=== PATIENT | male | born 1990 | race Caucasian/White ===

== ENCOUNTER 2017-02-15 07:38 | Emergency (ER) | payer SELFPAY ==
--- NOTE | ~2017-02-15 | ER ---
PATIENT'S NAME: MARY MERCADO [facility] AGE: 26 Y [address] ROOM: [place] [address] LOCATION: [facility] ADMIT DATE: 02/15/2017 ER/Outpatient Report DISCHARGE DATE: 02/15/2017 FAMILY PHYSICIAN: PHYSICIAN, NO ATTENDING PHYSICIAN: Matthew Murray Admission date and time documented in the medical record. I saw the patient at 0750 hours. CHIEF COMPLAINT: Shortness of breath, cough, wheezing, and fatigue. HISTORY OF PRESENT ILLNESS: The patient is a 26-year-old male who since yesterday has had increasing shortness of breath, chest tightness, wheezing. He has used a friend's inhaler every 2 hours. He has a dry cough, occasionally coughs up some white- grayish material. He had generalized fatigue. Denies any fever, chills, or sweats. No recent colds. No headache; eyes, ears, nose, throat, neck, or spine pain. A little lightheaded and dizzy. He thinks he has had some hyperventilation problems. No syncope or near syncope. No fall or trauma. Really, no chest pain, just the tightness. He is short of breath and wheezy. He is tachypneic. No abdominal pain, nausea, vomiting, diarrhea, or back pain. No joint or muscle swelling, redness, or pain. No skin eruptions or rash. No neuro changes, psych issues, or endocrine problems. HOME MEDICATIONS: None. ALLERGIES: NONE. SOCIAL HISTORY: The patient smokes a pack of cigarettes a day. Nondrinker. SIGNIFICANT PAST MEDICAL HISTORY: Negative except for tobacco abuse. He has had several ED visits for some respiratory problems, questionable asthma or reactive airway disease versus bronchitis. OPERATIONS: None. REVIEW OF SYSTEMS: All systems reviewed by me are negative with the exception of those discussed in the history of present illness. PATIENT'S NAME: MARY MERCADO [facility] AGE: 26 Y [address] ROOM: [place] [address] LOCATION: [facility] ADMIT DATE: 02/15/2017 ER/Outpatient Report DISCHARGE DATE: 02/15/2017 FAMILY PHYSICIAN: PHYSICIAN, NO ATTENDING PHYSICIAN: Matthew Murray PHYSICAL EXAMINATION: VITAL SIGNS: Temperature 96.3 tympanic, pulse 122 and regular, respirations 28, blood pressure 136/67, and O2 saturation on room air is 88%. HEENT: Head normocephalic. Eyes: Extraocular muscles intact. PERRL. Ears, clear TMs bilaterally. Nose clear. Throat clear. Mucous membranes moist. NECK: No nuchal rigidity. No thyromegaly or cervical adenopathy. No tenderness to palpation. SPINE: Nontender. No deformity. LUNGS: Decreased breath sounds diffusely with expiratory wheezing and rhonchi. Coarse cough. HEART: Tachy, regular. The patient is tachypneic. Pulses palpable. ABDOMEN: Flat, soft, nondistended, nontender. Good bowel tones. No organomegaly or abnormal masses palpable. EXTREMITIES: No peripheral edema, cyanosis, or deformity. NEUROVASCULAR: Intact. SKIN: Clear. IMAGING DATA: Chest x-ray showed no acute infiltrate. We will review x-ray with the radiologist. LABORATORY DATA: [place] [address], 86 segs, 5 lymphs, 5 monos, 4 eos; hemoglobin 17.1 with hematocrit 48.8; and platelet count 218,000. Sed rate was 2. CMS was normal. CRP was 0.83. EMERGENCY DEPARTMENT COURSE: Did start on IV saline lock. Gave the patient Solu-Medrol 250 mg IV in the emergency room, epinephrine 0.3 IM in the emergency room, and Rocephin 1 g IV in the emergency room. Gave him 2 DuoNeb and 1 albuterol nebulized respiratory treatments about 30 minutes apart here in the emergency department. He had improvement with respiratory nebulizer treatments. IMPRESSION: 1. Chest tightness with expiratory wheezes and rhonchi, etiology uncertain. He has accompanied hypoxia and leukocytosis without a left shift. This may be bronchitis with some reactive airway disease. He may have some asthma. 2. Tobacco abuse. PLAN: The patient dismissed home. Observation. Activity as tolerated. Stop smoking. Good fluid intake. Balanced diet. Albuterol oral inhaler with AeroChamber 2 puffs 30 seconds apart 4 times a day and p.r.n. Prednisone 20 PATIENT'S NAME: MARY MERCADO [facility] AGE: 26 Y [address] ROOM: [place] [address] LOCATION: ED ADMIT DATE: 02/15/2017 ER/Outpatient Report DISCHARGE DATE: 02/15/2017 FAMILY PHYSICIAN: PHYSICIAN, GEGE ATTENDING PHYSICIAN: Matthew Murray mg b.i.d. #14, Bactrim double strength b.i.d. #14. Follow up with personal physician as needed. Discussion ensued with the patient concerning my findings and recommendations, he understands. MD NONA DAWSON/abbyl /[id number] d: 02/15/17 1754 t: 02/16/17 0633, OUTPATIENT REPORT
[2017-02-15 08:13] LABS: BASOPHIL # 0.1 K/uL (0.0-0.2); BASOPHIL % 0.3 %; EOSINOPHIL # 0.6 K/uL (0.0-0.5); EOSINOPHIL % 3.5 %; HEMATOCRIT 48.8 % (37.0-53.0); HEMOGLOBIN 17.1 g/dL (12.0-17.0); IMMATURE GRANULOCYTE # 0.1 K/uL (0.0-0.3); IMMATURE GRANULOCYTE % 0.3 %; LYMPHOCYTE # 0.9 K/uL (0.8-4.0); LYMPHOCYTE % 5.2 %; MCH 30.8 pg (27.0-34.0); MCV 87.9 fl (83.0-98.0); MONOCYTE # 0.8 K/uL (0.0-1.0); MONOCYTE % 4.9 %; MPV 9.4 fl (9.4-12.4); NEUTROPHIL # (ANC) 14.3 K/uL (1.4-9.0); NEUTROPHIL % 85.8 %; NRBC % 0 /100WBC (0-0.00); PLATELET COUNT 218 K/uL (150-450); RBC 5.55 M/uL (4.00-6.00); RDW-CV 12.1 % (11.9-14.6)
[2017-02-15 08:14] LABS: WBC 16.7 K/uL (4.0-11.0)
[2017-02-15 08:30] LABS: ALBUMIN 4.5 gm/dL (3.5-5.0); ALK PHOS 90 IU/L (33-138); ALT 40 IU/L (12-78); ANION GAP 12.9 (10.0-19.0); AST 30 IU/L (10-40); BLOOD UREA NITROGEN 17 mg/dL (6-24); CHLORIDE 107 mMol/L (96-110); CO2 24 mMol/L (22-32); CREATININE 0.9 mg/dL (0.6-1.3); ESTIMATED GFR (MDRD EQUATION) > 60; POTASSIUM 3.9 mMol/L (3.7-5.1); SODIUM 140 mMol/L (135-145); TOTAL BILIRUBIN 1.2 mg/dL (0.0-1.5); TOTAL PROTEIN 7.3 g/dL (6.0-8.4)
== END 2017-02-15 10:06 | disposition disaster alternative care site (69) ==
LOC: GMED 07:38
PROVIDERS: Emergency Medicine
DX: R07.89 Other chest pain (principal); R06.2 Wheezing; R09.02 Hypoxemia; D72.829 Elevated white blood cell count, unspecified; F17.210 Nicotine dependence, cigarettes, uncomplicated
CPT/HCPCS: J0171; J0696; J2930